=== PATIENT | female | born 1995 | race Caucasian/White ===

== ENCOUNTER 2016-08-11 07:41 | Emergency (ER) | payer OTHER ==
[2016-08-11 07:48] VITALS: PULSE 87; RESP 20
--- NOTE | 2016-08-11 08:11 | EDPHY ---
H & P Time Seen by Provider: 08/11/16 08:10 HPI/ROS: CHIEF COMPLAINT: Sore throat dehydration HISTORY OF PRESENT ILLNESS: Patient started getting symptoms a week ago on Tuesday, about 5 days ago. She had fever and sore throat and body aches and myalgias and difficulty swallowing and eating. She was diagnosed with influenza B yesterday at the [facility]. She comes in today with difficulty tolerating oral fluids, moderate sore throat , continued fever chills and myalgias. Symptoms moderate. Not associated with headache or stiff neck or recent foreign travel. REVIEW OF SYSTEMS: Eye: no change in vision ENT: No ear symptoms. Cardiac: no chest pain or syncope Pulmonary: no cough or SOB Abdomen: no vomiting, diarrhea, abdominal pain Musculoskeletal: Myalgias but no specific neck or back pain. Skin: no rash Neuro: no headache Constitutional: HPI : no urinary symptoms, increased urination A comprehensive 10 point review of systems is otherwise negative aside from elements mentioned in the history of present illness. PAST MEDICAL HISTORY: Negative Social history: Student no IV drug abuse or recent thorough travel General Appearance: Alert and conversant, cooperative. Eyes: No scleral icterus. ENT, Mouth: Slightly dry mucous membranes. Pharynx is red but no trismus and no exudate. Normal tympanic membranes. Respiratory: Normal respiratory effort, breath sounds equal, lungs are clear to auscultation. No stridor or drooling. Cardiovascular: Regular rate and rhythm. Gastrointestinal: Abdomen is soft and non tender. Neurological: Alert and oriented x3. Normally conversant. Face symmetric, normal movement and sensation in all extremities. Skin: Warm and dry, no rashes. Musculoskeletal: Neck supple with normal range of motion. Psychiatric: Not agitated. Emergency Department course/MDM: Normal saline 2 L IV for clinical dehydration with dry mucous membranes. Dexamethasone discussed and consented. Oral ibuprofen. Likely influenza B without evidence of concurrent bacterial infection. Tamiflu not indicated as 5 days into symptoms today. HR 87. No evidence of airway obstruction. Smoking Status: Current every day smoker Constitutional: Initial Vital Signs Temperature (C) 37.4 C 08/11/16 07:44 Heart Rate 87 08/11/16 07:44 Respiratory Rate 20 08/11/16 07:44 Blood Pressure 124/91 H 08/11/16 07:44 O2 Sat (%) 95 08/11/16 07:44 O2 Delivery Mode Room Air Allergies/Adverse Reactions: No Known Allergies Allergy (Verified 08/11/16 07:42) Home Medications: Medication Instructions Recorded NK [No Known Home Meds] 08/11/16 Medical Decision Making Differential Diagnosis: I think it is unlikely this patient has strep throat, epiglottitis, retropharyngeal abscess, peritonsillar abscess. - Data Points Laboratory Results: 08/11/16 08:40 Urine Color COLORLESS Urine Appearance CLEAR Urine pH 6.0 (5.0-7.5) Ur Specific [place] < 1.001 L (1.002-1.030) Urine Protein NEGATIVE (NEGATIVE) Urine Ketones TRACE H (NEGATIVE) Urine Blood NEGATIVE (NEGATIVE) Urine Nitrate NEGATIVE (NEGATIVE) Urine Bilirubin NEGATIVE (NEGATIVE) Urine Urobilinogen NEGATIVE EU EU (0.2-1.0) Ur Leukocyte Esterase NEGATIVE (NEGATIVE) Ur Culture Indicated? NOT INDICATED (NI) Urine Glucose NEGATIVE (NEGATIVE) Medications Given: Discontinued Medications Dexamethasone (Decadron Injection) 10 mg IVP EDNOW ONE Stop: 08/11/16 08:21 Last Admin: 08/11/16 08:55 Dose: 10 mg Sodium Chloride (Ns) 1,000 mls @ 0 mls/hr IV ONCE ONE PRN Reason: Wide Open Stop: 08/11/16 08:21 Last Admin: 08/11/16 08:50 Dose: 1,000 mls Sodium Chloride (Ns) 1,000 mls @ 0 mls/hr IV ONCE ONE PRN Reason: Wide Open Stop: 08/11/16 08:25 Last Admin: 08/11/16 09:20 Dose: 1,000 mls Ibuprofen (Motrin) 600 mg PO EDNOW ONE Stop: 08/11/16 08:21 Last Admin: 08/11/16 08:50 Dose: 600 mg Departure - Departure Disposition: Home, Routine, Self-Care Clinical Impression: Influenza B, Dehydration Condition: Good Instructions: Dehydration (ED), Influenza (ED) Additional Instructions: Oral ibuprofen 600 mg every 8 hours for the next 5 days. Increased oral fluids. Referrals: MICAH Arita,. [Clinic] - As per Instructions
[2016-08-11] MEDS ORDERED: DEXAMETHASONE 10 MG/ML VIAL IVP ONE (08:20)
[2016-08-11] MEDS ORDERED: IBUPROFEN 600 MG TAB PO ONE (08:20)
[2016-08-11] MEDS ORDERED: NS 1,000 ML IV ONE ×2 (08:20→08:24)
[2016-08-11 09:10] LABS: COLOR COLORLESS; LEUKOCYTE ESTERASE,URINE NEGATIVE (NEGATIVE); NITRITE,URINE NEGATIVE (NEGATIVE)
[2016-08-11 10:03] VITALS: BP 127/75; TEMP 99; O2SAT 97
== END 2016-08-11 10:03 | disposition home or self-care (01) ==
DX: E86.0 Dehydration (principal); J10.1 Influenza due to other identified influenza virus with other respiratory manifestations; F17.200 Nicotine dependence, unspecified, uncomplicated
CPT/HCPCS: 96374

== ENCOUNTER 2017-10-18 20:27 | Emergency (ER) | payer OTHER ==
[2017-10-18] MEDS ORDERED: CEPHALEXIN 500MG PREPACK#4 BTL TAKEHOME ONE (22:10)
--- NOTE | 2017-10-18 22:14 | EDPHY ---
H & P Smoking Status: Current every day smoker Time Seen by Provider: 10/18/17 20:35 HPI/ROS: CHIEF COMPLAINT: Right pinky injury HISTORY OF PRESENT ILLNESS: 22-year-old female presents to the emergency department with injury to the right pinky finger. The patient got her finger caught in a sliding glass door. The incident happened just prior to arrival. She is right-hand dominant. She believes her tetanus shot is current. Denies injury to the other fingers. ROS: Denies retained foreign body, injury to the other fingers (KittyEnedina matos ) Past Medical/Surgical History: Negative (KittyEnedina matos) Social History: Single ([employer]) Physical Exam: On examination the patient has nail avulsion noted to the right 5th finger. There is slow active bleeding noted. No tenderness with palpation of the D IP, PIP or MCP joint of the right 5th finger. No rotational deformities noted. Full range of motion of her fingers. The other fingers do not appear injured. No lymphangitis or signs of infection. (Enedina Kapoor) Constitutional: Initial Vital Signs Temperature (C) 37.3 C 10/18/17 20:28 Heart Rate 77 10/18/17 20:28 Respiratory Rate 16 10/18/17 20:28 Blood Pressure 133/88 H 10/18/17 20:28 O2 Sat (%) 96 10/18/17 20:28 O2 Delivery Mode Room Air Allergies/Adverse Reactions: No Known Allergies Allergy (Verified 08/11/16 07:42) Home Medications: Medication Instructions Recorded Bcp 10/18/17 Cephalexin [Keflex] 500 mg PO QID #28 cap 10/18/17 lamOTRIGine 10/18/17 MDM/Departure - [facility] Imaging Results: Imaging Impressions Finger X-Ray 10/18/17 20:45 Impression: Negative for fracture. Procedures: After consent was obtained from the patient, digital block using 1% lidocaine without epinephrine 0.5% bupivacaine without epinephrine was instilled into the right 5th finger. After adequate anesthesia, the wound was thoroughly cleansed and irrigated. She had exposed bone noted to the very distal phalanx. No evidence of retained foreign body. There is avulsed tissue noted. Normal sensation to light touch with normal 2 point discrimination. Full range of motion of her other fingers. (Enedina Kapoor) Medications Given: Discontinued Medications Cephalexin (Keflex 500 Mg Prepack#4) 1 btl TRACY EDNOW ONE PRN Reason: Protocol Stop: 10/18/17 22:11 Last Admin: 10/18/17 22:30 Dose: 1 btl ED Course/Re-evaluation: The patient was evaluated and managed by the physician's ict sales assistant. My cosignature indicates that I reviewed the chart and I agree with the findings and plan of care as documented. I am the secondary supervising physician. ( Elizabeth Samuels) 22-year-old female presents to the emergency department with right 5th finger injury. She has a complete nail avulsion with exposed bone and avulsed tissue. X-rays interpreted by myself reveal likely a fracture to the distal phalanx. Does not extend into the D IP joint. The wound was thoroughly cleansed. Dressing and splint applied. The patient was given antibiotics and will follow up with orthopedic hand surgeon in 48 hr. She was comfortable with this plan. I spoke with her father via phone. (Enedina Kapoor) - Depart Disposition: Home, Routine, Self-Care Clinical Impression: Fracture of distal phalanx of right little finger Qualifiers: Encounter type: initial encounter Fracture type: open Fracture alignment: nondisplaced Qualified Code(s): S62.666B - Nondisplaced fracture of distal phalanx of right little finger, initial encounter for open fracture Nail avulsion, finger Qualifiers: Encounter type: initial encounter Qualified Code(s): S61.309A - Unspecified open wound of unspecified finger with damage to nail, initial encounter Condition: Good Instructions: Finger Fracture (ED), Nail Avulsion (ED), Acute Wounds (ED) Additional Instructions: Keflex 500 mg 4 times daily for 1 week to prevent infection. Keep splint and dressing on until follow-up with orthopedic hand surgeon in 48 hr to recheck. Ibuprofen 400 mg every 8 hr as needed for pain. Return to the emergency department sooner if you notice any signs or symptoms of infection such as redness, swelling, increased pain, fever, purulent drainage. Prescriptions: Cephalexin [Keflex] 500 mg PO QID #28 cap Referrals: Alejandro Mondragon MD [Medical Doctor] - 1-2 days without fail (Hand surgeon on- call)
[2017-10-18 22:34] VITALS: BP 123/67
== END 2017-10-18 22:34 | disposition home or self-care (01) ==
PROC: 3E0T3BZ Introduction of Anesthetic Agent into Peripheral Nerves and Plexi, Percutaneous Approach (ICD-10-PCS; principal; 2017-10-18)
DX: S62.666B Nondisplaced fracture of distal phalanx of right little finger, initial encounter for open fracture (principal); S61.306A Unspecified open wound of right little finger with damage to nail, initial encounter; F17.200 Nicotine dependence, unspecified, uncomplicated; W23.0XXA Caught, crushed, jammed, or pinched between moving objects, initial encounter